=== PATIENT | female | born 1990 | race Caucasian/White ===

== ENCOUNTER 2017-10-02 21:35 | Emergency (ER) | payer OTHER ==
[~2017-10-02] VITALS: Ht 165.1 cm; Wt 70.8 kg
[~2017-10-02 21:35] MED LIST: BIRTH CONTROL; CYCL10 PO; FERR325 PO; IBUP600 PO; IBUP800 PO; LORA10ER PO; MULVITMINE PO; Naprosyn500 MG PO; OXYACE5T PO; PRENA1 PEARL S1 EACH PO; PROM25 PO; Percocet 5-3251 EACH PO; Ultram50 MG PO; Zofran4 MG PO
[2017-10-02] MEDS ORDERED: CEPH500 PO (22:30)
== END 2017-10-02 22:40 | disposition home or self-care (01) ==
LOC: ER 21:35
DX: L08.9 Local infection of the skin and subcutaneous tissue, unspecified (principal); Z88.1 Allergy status to other antibiotic agents
CPT/HCPCS: 99282

== ENCOUNTER → 2017-11-09 | Outpatient (CLI) | payer OTHER ==
[~2017-11-09] MED LIST changes: +CEPH500 PO
== END | disposition home or self-care (01) ==
LOC: LAB 17:50 → LAB SHORT 17:50
DX: N89.8 Other specified noninflammatory disorders of vagina (principal)
CPT/HCPCS: 87070; 87205

== ENCOUNTER 2018-03-10 18:16 | Emergency (ER) | payer OTHER ==
[~2018-03-10] VITALS: Ht 165.1 cm; Wt 65.8 kg
[~2018-03-10 18:16] MED LIST changes: +Ferrous Sulfat325 M2 PO; +Toviaz4 MG PO
[2018-03-10] MEDS ORDERED: Augmentin 875-1 EACH PO (19:29)
== END 2018-03-10 19:33 | disposition home or self-care (01) ==
LOC: ER 18:16
DX: J32.9 Chronic sinusitis, unspecified (principal); Z88.1 Allergy status to other antibiotic agents
CPT/HCPCS: 99283

== ENCOUNTER 2019-04-06 16:45 | Emergency (ER) | payer OTHER ==
[~2019-04-06] VITALS: Ht 165.1 cm; Wt 61.2 kg
[~2019-04-06 16:45] MED LIST changes: +Augmentin 875-1 EACH PO
[2019-04-06] MEDS ORDERED: Flonase 0.05% N16 GM (19:20)
[2019-04-06] MEDS ORDERED: Amoxicillin875 MG PO (19:20)
== END 2019-04-06 19:30 | disposition home or self-care (01) ==
LOC: ER 16:45
DX: H66.93 Otitis media, unspecified, bilateral (principal); J32.9 Chronic sinusitis, unspecified; Z88.1 Allergy status to other antibiotic agents; Z79.899 Other long term (current) drug therapy
CPT/HCPCS: 99283

== ENCOUNTER → 2024-10-23 | Outpatient (CLI) | payer BC ==
[~2024-10-23] MED LIST changes: +Amoxicillin875 MG PO; +CEFD300 PO; +Flonase 0.05% N16 GM
== END ==
LOC: LAB 13:00 → LAB SHORT 13:00
DX: N39.0 Urinary tract infection, site not specified (principal); R31.9 Hematuria, unspecified
CPT/HCPCS: 87077; 87086; 87186

== ENCOUNTER 2024-10-24 08:41 | Emergency (ER) | payer BC ==
[~2024-10-24] VITALS: Ht 162.6 cm; Wt 68.0 kg
[~2024-10-24 08:41] MED LIST changes: -CEFD300 PO
[2024-10-24] MEDS ORDERED: CEFD300 PO (08:56)
[2024-10-24] MEDS ORDERED: Ketorolac Tromethamine 30mg Vial IV ONE (09:05)
[2024-10-24] MEDS ORDERED: Ondansetron HCl 2 MG / ML 2ML Vial IV ONE (09:05)
[2024-10-24] MEDS ORDERED: NS 1,000 ML IV SCH (09:05)
[2024-10-24 09:38] LABS: BASOPHILS ABSOLUTE AUTO 0.05 K/mm3 (0.00-0.23); BASOPHILS PERCENT AUTO 0 % (0-2); EOSINOPHILS ABSOLUTE AUTO 0.01 K/mm3 (0.00-0.68); EOSINOPHILS PERCENT AUTO 0 % (0-6); Hematocrit 39.1 % (33.0-51.0); Hemoglobin 13.7 g/dL (11.5-16.0); IMMATURE GRAN ABSOLUTE AUTO 0.07 K/mm3 (0.00-0.10); IMMATURE GRAN PERCENT AUTO 1 % (0-1); LYMPHOCYTES ABSOLUTE AUTO 2.19 K/mm3 (0.84-5.20); LYMPHOCYTES PERCENT AUTO 16 % (21-46); MONOCYTES ABSOLUTE AUTO 1.00 K/mm3 (0.16-1.47); MONOCYTES PERCENT AUTO 7 % (4-13); Mean Corpuscular HGB Conc 35.0 g/dL (31.5-36.5); Mean Corpuscular Volume 86 fL (80-100); NEUTROPHILS ABSOLUTE AUTO 10.38 K/mm3 (1.96-9.15); NEUTROPHILS PERCENT AUTO 76 % (41-73); NRBC ABSOLUTE 0.00 K/mm3 (0.00-0.02); NRBC Auto 0.0 /100 WBC (0.0-0.2); Platelet Count 252 K/mm3 (150-400); RDW Coefficient Variation 12.5 % (11.7-14.2); RDW Standard Deviation 38.9 fL (35.1-46.3)
[2024-10-24 09:56] LABS: Alanine Aminotransfer (ALT/SGP 40.0 U/L (12-78); Albumin, Blood 3.4 g/dL (3.4-5.0); Albumin/Globulin Ratio 0.7 (0.8-1.8); Anion Gap 12.0 mmol/L (3-11); Aspartate Aminotrans (AST/SGOT 17.0 U/L (12-37); Bilirubin, Total 0.8 mg/dL (0.1-1.0); Blood Urea Nitrogen 7.0 mg/dL (8-24); CO2, Blood 22.0 mmol/L (21-32); Calcium, Blood 9.5 mg/dL (8.5-10.1); Chloride, Blood 101.0 mmol/L (98-108); Creatinine, Blood 0.57 mg/dL (0.40-1.00); Globulin, Blood 4.7 g/dL (2.2-4.0); Glucose, Blood 270.0 mg/dL (70-99); Potassium, Blood 3.6 mmol/L (3.5-5.5); Sodium, Blood 131.0 mmol/L (136-145); Total Protein, Blood 8.1 g/dL (6.4-8.2)
[2024-10-24 10:45] VITALS: BP 110/75
== END 2024-10-24 11:00 | disposition home or self-care (01) ==
LOC: ER 08:41
PROVIDERS: Physician Assistant
DX: N39.0 Urinary tract infection, site not specified (principal); Z88.1 Allergy status to other antibiotic agents; Z79.899 Other long term (current) drug therapy
CPT/HCPCS: 80053; 81025; 85025; 96374; 96375; 99283-25; J1885; J2405; J7030